=== PATIENT | female | born 1955 | race Caucasian/White ===

== ENCOUNTER 2017-03-12 14:19 | Observation (INO) ==
[2017-03-12] MEDS ORDERED: Aspirin 325 MG TABLET PO ONE (17:49)
[2017-03-12] MEDS ORDERED: Nitroglycerin 0.4 MG TAB.SUBL SL PRN (17:49)
[2017-03-12] MEDS ORDERED: Naloxone 0.4 MG/ML INJ IVP PRN (20:36)
--- NOTE | 2017-03-12 20:41 | Internal Med History&Physical ---
<Shakeel Mckenzie J - Last Filed: 03/12/17 21:51> Date of Encounter: 03/12/17 Time of Encounter: 20:39 Assessment and Plan (1) Pulmonary embolism Current visit: Yes Status: Suspected Rapid onset of dyspnea. He awoke at 0400 with shortness of breath. Has subsided at this time. However, d-dimer is elevated at 1146. Concern for PE. CTA of chest Limited exam revealing no PE. 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 Given the acute onset of dyspnea, Speck to cancer we will continue to rule out PE start heparin drip now without bolus and monitor per heparin gtt protocol Bilateral lower extremity venous Doppler studies in the morning VQ scan in the morning Serial troponin echocardiogram Qualifiers: Chronicity: acute Acute cor pulmonale presence: without acute cor pulmonale Qualified Code(s): I26.99 - Other pulmonary embolism without acute cor pulmonale (2) Elevated troponin Current visit: No Status: Acute Denies any chest pain, hemodynamically stable. Initial troponin 0.04. Repeat troponin 0.03 Serial troponins echocardiogram (3) Elevated d-dimer Current visit: Yes Status: Acute CTA negative for PE however study was limited. Denies any lower extremity pain or tenderness. BLE chronically swollen. However, she is at risk for VTE, which possible cancer from ovarian tumor. See plan above Internal Medicine - H&P: HPI Chief complaint: dyspnea Admitted From: Home Plans for Post Hospital Care: Home History of present illness: Ms. Dejesus is a 61 year old female with a PMH of CHF and hypertension. She reports that she woke this morning at 0400 with rapid onset of shortness of breath. She states that last night she began feeling palpitations," feeling heart was beating, chest, I think it was an anxiety attack". No history of COPD , or PE. The patient mentions that she has an having postmenopausal bleeding and was diagnosed with an ovarian tumor. Tumor is yet to be biopsied. Workup reveals elevated troponin at 0.04, gripping and thrombocytopenia. D-dimer elevated 1146. UA reveals large blood. Chest x-ray and CTA negative. Given her clinical presentation she is at risk for pulmonary embolus. We will admit and continue to workup Past Med Surg Social Fam HX - Past Medical History Medical history: CHF, hypertension, other Psychiatric history: no psych history - Social History Smoking Status: Never smoker Smokeless Tobacco Status: No Alcohol use: none Drug use: none - Family History Mother Race: Family Member Ethnicity: Non- Hx Family Cancer: Yes (thyroid cancer) Father Race: Family Member Ethnicity: Non- Living Status: Hx Family Cardiac Disorders: Yes (mi) Sister Living Status: Hx Family Cancer: Yes (breast) Internal Medicine - H&P: Meds Doxycycline 100 mg PO BID 01/11/16 [History] Furosemide [Lasix] 40 mg PO BID 01/11/16 [History] Olmesartan Medoxomil [Benicar] 40 mg PO DAILY 01/11/16 [History] traMADol [Ultram] 50 mg PO BID 01/11/16 [History] 3 Allergy/AdvReac Type Severity Reaction Status Date / Time azithromycin [From Zithromax] Allergy Itching Verified 03/12/17 07:36 cephalexin [From Keflex] Allergy Hives Verified 03/12/17 07:36 ciprofloxacin [From Cipro] Allergy See Verified 03/12/17 07:36 Comments Erythromycin Base Allergy See Verified 03/12/17 07:36 Comments indomethacin [From Indocin] Allergy Rash Verified 03/12/17 07:36 Penicillins [PCN] Allergy See Verified 03/12/17 07:36 Comments sulfur dioxide Allergy Rash Verified 03/12/17 07:36 All Systems PM: A 10-system review of systems was performed and is negative for pertinent findings except as documented above in the HPI. - Constitutional Constitutional: no chills, no fever(s), no night sweats - EENT Eyes: no change in vision, no discharge, no pain, no photophobia Ears: no ear discharge, no ear pain, no tinnitus Nose, mouth and throat: no dysphagia, no nasal discharge, no neck pain, no sore throat - Cardiovascular Cardiovascular ROS IM: no chest pain, no diaphoresis, no dyspnea, no lightheadedness, no palpitations, no syncope - Respiratory Respiratory: dyspnea (has now subsided), no cough, no wheezing, no excessive phlegm production - Gastrointestinal Gastrointestinal: no abdominal pain, no diarrhea, no hematemesis, no hematochezia, no melena, no nausea, no vomiting - Genitourinary Genitourinary: no change in urinary stream, no dysuria, no flank pain, no hematuria - Musculoskeletal Musculoskeletal ROS IM: no numbness, no tingling - Integumentary Integumentary IM: no rash, no unusual bruising - Neurological Neurological ROS: no confusion, no convulsions, no focal weakness, no numbness, no tingling, no tremor(s) - Psychiatric Psychiatric: anxiety (intermittent) - Hematologic/Lymphatic Hematologic/Lymphatic: no easy bruising - Constitutional Vitals: Temp Pulse Resp BP Pulse Ox 98.0 F 88 16 118/68 97 03/12/17 19:12 03/12/17 19:12 03/12/17 19:12 03/12/17 19:12 03/12/17 19:12 General appearance: Present: cooperative, A&O X 3, no acute distress, answers questions appropriately - Head Head exam: Present: atraumatic, normocephalic - Eye Eye exam: Present: PERRL, conjuntiva pink, sclera anicteric Pupils: Present: PERRL - Neck Neck exam general surgery: Present: supple, trachea midline. Absent: lymphadenopathy - Respiratory Respiratory exam: Present: CTAB. Absent: accessory muscle use, rales, rhonchi, wheezes - Cardiovascular Cardiovascular exam: Present: RRR, +S1, +S2. Absent: diastolic murmur, gallop, rubs, systolic murmur - Expanded Cardiovascular Exam Type of murmur: Present: systolic - GI/Abdominal GI/Abdominal exam: Present: normal bowel sounds, soft, no peritoneal signs. Absent: distended, tenderness - Extremities Exam Extremities exam: Present: warm, radial pulses palpable and symmetrical. Absent : calf tenderness, cyanotic, pedal edema - Neurological Exam Neurological exam: Present: alert, CN II-XII intact, oriented X3, no focal deficits. Absent: pronater drift, facial droop, speech deficit - Skin Skin exam: Present: dry, intact Internal Med - H&P Results - Labs Labs: Cardiac Enzymes 03/12/17 Range/Units 19:29 Troponin I 0.03 (0-0.03) ng/mL - Diagnostic Studies Chest x-ray Status: image reviewed by me Additional comments: no acute pulmonary process CT scan - chest Status: image reviewed by me Additional comments: Study is limited however no obvious PE noted. If shortness of breath continues consider VQ scan <Naumovski,Tobi - Last Filed: 03/12/17 23:22> Date of Encounter: 03/12/17 Time of Encounter: 22:45 - Cardiovascular Cardiovascular ROS IM: dyspnea, palpitations, no chest pain, no lightheadedness , no syncope - Respiratory Respiratory: dyspnea, no hemoptysis, no pain on inspiration, no chest congestion , no excessive phlegm production, no change in phlegm color - Constitutional Vitals: Temp Pulse Resp BP Pulse Ox 98.0 F 80 16 153/69 96 03/12/17 22:46 03/12/17 22:46 03/12/17 22:46 03/12/17 22:46 03/12/17 22:46 General appearance: Present: cooperative, A&O X 3, pleasant, no acute distress - Neck Neck exam general surgery: Present: full ROM, supple. Absent: tenderness - Respiratory Respiratory exam: Present: CTAB. Absent: rales, respiratory distress, rhonchi, wheezes - Cardiovascular Cardiovascular exam: Present: RRR, +S1, +S2. Absent: diastolic murmur, systolic murmur - GI/Abdominal GI/Abdominal exam: Present: soft. Absent: tenderness - Back Exam Back exam: Absent: CVA tenderness (L), CVA tenderness (R) Internal Med - H&P Results - Labs Labs: Cardiac Enzymes 03/12/17 Range/Units 19:29 Troponin I 0.03 (0-0.03) ng/mL - EKG Data -: EKG Interpreted by Myself - EKG Data Prior EKG available for review: no EKG comments: 03/12/17 23:13 Sinus tachycardia - Diagnostic Studies Chest x-ray Status: image reviewed by me (negative) - Attending Attestation I discussed the patient TYONEK, PMH, ROS, lab data, and exam findings with Shakeel Mkcenzie CNP. I then saw and examined patient independently as well. 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 She is in the process of diagnostic work-up at [facility]. She awoke from her sleep earlier today with shortness of breath and racing heartbeat. Given the suspected malignancy and sudden onset of dyspnea, my clinical suspicion of PE is very high. Her D-Dimer is markedly elevated. She had a CTA of her chest at [place], but the study was suboptimal and non-diagnostic. It did rule out PE in the proximal vaculature but distal PE could not be excluded. We have placed her on heparin gtt with no bolus. She does have chronic thrombocytpenia with platelets running around 90-100's. We will monitor closely for any significant bleeding. She does have a mild nosebleed, which is chronic for her. I advised her and her nurse to monitor for any significant bleeding and to contact me right away if it occurs. She denies any history of GI bleeding. Of note, she does confirm a family history of DVT in her mother. Other than my comments above and noted exam findings, I agree with Shakeel's assessment and plan.
[2017-03-12] MEDS: traMADol 50 MG TABLET PO SCH (21:54)
[2017-03-12] MEDS: Furosemide 40 MG TABLET PO SCH (21:55)
[2017-03-12] MEDS: Heparin 25,000 UNIT/500 ML D5W 25,000 UNIT/500 ML MLS IVC SCH (22:17)
[2017-03-13] MEDS ORDERED: Temazepam 15 MG CAPSULE PO ONE (00:39)
[2017-03-13 01:15] LABS: Basophils % 0.9 %; Eosinophils # 0.2 K/mcL (0.0-0.6); Eosinophils % 4.9 %; Hematocrit 35.6 % (35.3-44.9); Hemoglobin 12.1 g/dL (11.5-15.4); Immature Granulocytes % 0.2 % (0-4); Lymphocytes # 1.1 K/mcL (0.6-4.6); Lymphocytes % 25.2 %; Mean Corpuscular Hemoglobin 33.3 pg (28.0-33.3); Mean Corpuscular Volume 98.1 fL (83.0-100.0); Mean Platelet Volume 10.2 fL (9.4-12.4); Monocytes # 0.4 K/mcL (0.0-1.3); Monocytes % 9.9 %; Neutrophils # 2.5 K/mcL (1.6-8.9); Red Blood Count 3.63 M/mcL (3.82-4.97); Red Cell Distribution Width 13.4 % (11.5-14.5); Segmented Neutrophils % 58.9 %
[2017-03-13 01:16] LABS: Platelet Count 88 K/mcL (140-400)
[2017-03-13 01:31] LABS: Alanine Aminotransferase 17 Units/L (0-55); Albumin 2.6 g/dL (3.5-5.0); Albumin/Globulin Ratio 0.8 (1.1-2.2); Alkaline Phosphatase 87 Units/L (38-126); Aspartate Amino Transferase 35 Units/L (5-34); BUN/Creatinine Ratio 17 (6-26); Bilirubin,Total 1.2 mg/dL (0.2-1.2); Blood Urea Nitrogen 11 mg/dL (7-20); Calcium 8.8 mg/dL (8.6-10.8); Carbon Dioxide 25 mEq/L (19-29); Chloride 111 mEq/L (98-109); Globulin 3.2 g/dL (2.4-3.5); Glucose 116 mg/dL (70-99); Magnesium 1.6 mg/dL (1.6-2.6); Osmolality,Calculated 294 (280-300); Potassium 3.9 mEq/L (3.5-4.5); Sodium 142 mEq/L (136-145); Total Protein 5.8 g/dL (6.0-8.3); eGFR For African Americans > 60 (> 60); eGFR For Non-African Americans > 60 (> 60)
[2017-03-13 05:06] LABS: Heparin anti-factor XA UFH 0.51 IU/mL (0.30-0.70)
[2017-03-13 05:28] LABS: Activated Partial Thrombo Time 215.1 Seconds (26.0-36.0)
[2017-03-13] MEDS ORDERED: Acetaminophen 325 MG TABLET PO PRN (05:35)
[2017-03-13] MEDS ORDERED: *HR* Enoxaparin 40 MG/0.4 ML SYRINGE SQ SCH (06:00)
[2017-03-13] MEDS: traMADol 50 MG TABLET PO SCH (08:54)
[2017-03-13] MEDS: Furosemide 40 MG TABLET PO SCH (08:54)
[2017-03-13] MEDS: Heparin 25,000 UNIT/500 ML D5W 25,000 UNIT/500 ML MLS IVC SCH (08:56)
[2017-03-13 15:41] VITALS: BP 150/70
--- NOTE | 2017-03-13 16:14 | Discharge Summary ---
Date of Encounter: 03/13/17 Time of Encounter: 16:00 - Discharge Diagnosis (1) Elevated d-dimer Priority: Secondary Status: Acute Code(s): R79.89 - Other specified abnormal findings of blood chemistry (2) Venous insufficiency Priority: Secondary Status: Acute Code(s): I87.2 - Venous insufficiency (chronic) (peripheral) (3) Dyspnea Priority: Primary Status: Acute Qualifiers: Dyspnea type: unspecified Qualified Code(s): R06.00 - Dyspnea, unspecified Code(s): R06.00 - Dyspnea, unspecified (4) Reactive airway disease Priority: Secondary Status: Acute Comments: Continue albuterol as needed Qualifiers: Asthma severity: mild Asthma persistence: unspecified Qualified Code(s): J45.909 - Unspecified asthma, uncomplicated Code(s): J45.909 - Unspecified asthma, uncomplicated - Discharge Medications Prescriptions: Ergocalciferol (VITAMIN D2) [Drisdol (50,000 Unit)] 50,000 unit PO QWEEK #15 capsule Thiamine (B-1) [Vitamin B-1] 200 mg PO DAILY #180 tablet Home Medications: Olmesartan Medoxomil [Benicar] 40 mg PO DAILY 01/11/16 [History] traMADol [Ultram] 50 mg PO BID 01/11/16 [History] Ergocalciferol (VITAMIN D2) [Drisdol (50,000 Unit)] 50,000 unit PO QWEEK #15 capsule 03/13/17 [Rx] Furosemide [Lasix] 40 mg PO BIDDIURETIC tablet 03/13/17 [Rx] Nitroglycerin 0.4 mg SL Q5MIN PRN #25 tab.subl 03/13/17 [Rx] Thiamine (B-1) [Vitamin B-1] 200 mg PO DAILY #180 tablet 03/13/17 [Rx] Zolpidem [Ambien] 5 mg PO HS 03/13/17 [History] Allergies/Adverse Reactions: 3 Allergy/AdvReac Type Severity Reaction Status Date / Time azithromycin [From Zithromax] Allergy Itching Verified 03/12/17 07:36 cephalexin [From Keflex] Allergy Hives Verified 03/12/17 07:36 ciprofloxacin [From Cipro] Allergy See Verified 03/12/17 07:36 Comments Erythromycin Base Allergy See Verified 03/12/17 07:36 Comments indomethacin [From Indocin] Allergy Rash Verified 03/12/17 07:36 Penicillins [PCN] Allergy See Verified 03/12/17 07:36 Comments sulfur dioxide Allergy Rash Verified 03/12/17 07:36 Procedures/tests Complete & Pending: Procedures Performed prior 72 hours Category Date Time Status VQ Scan [NM pul vent and perfuse] [NM] Routine Exams 03/13/17 09:00 Completed EV echocardiogram Routine Y 03/13/17 20:46 Completed EV venous imaging LE BI Routine Y 03/13/17 21:24 Completed Date of admission: 03/12/17 15:38 Primary care physician: Darrell Lafleur CNP Discharging clinician: Clara Medrano Anticipated date of discharge: 03/13/17 - Patient Status Disposition: Home, Self-Care Condition: Good Functional capacity at discharge: independent ambulation Overall status at discharge: patient is back to baseline - Discharge Instructions Instructions: Dyspnea (GEN) Follow Up With: Darrell Lafleur CNP [Primary Care Provider] - 03/19/17 11:00 am (Pulmonary function test and stress test to be done as an outpatient) - Diet and Activity Activity: resume usual activities as tolerated Diet: low fat, low cholesterol Interval History: Ms. Dejesus is a 61 year old female with a PMH of hypertension. Patient came to the hospital with complain waking up in the morning with shortness of breath and palpitation. Patient stated to have palpitations started night before. Patient stated that during Fall months usually she has a tach of shortness of breath. Patient stated she is living in cannot decide where farmers now gathering [place] .patient denies any orthopnea or proximal nocturnal dyspnea. Patient has history of bilateral lower extremity edema. Patient has a history of fatty liver .at ER her troponin was 0.004, she had elevated d-dimer. With high-risk all be workup was done was including venous Doppler lower extremities as well as CT scan. Venous doppler lower extremity was negative, CAT scan chest was inconclusive, VQ scan low probability. At beginning patient was started on heparin drip once workup negative heparin drip discontinued. I had long discussion with patient counseling about her risk factors and the need for a stress test. Patient wanted to add as an outpatient. Discussed with patient about finding on CAT scan about liver cirrhosis. She had follow-up with supervisor doping. Discussed with patient about this attack most likely asthma and she need to have pulmonary function test and follow-up with pulmonary. Patient stated she is going to follow-up with family doctor and arrange for a stress test and pulmonary function test. Patient stated she is back to her baseline. Counseling patient about lifestyle modification Hospital course: Ms. Dejesus is a 61 year old female - Time Spent with Patient Total time spent providing and/or coordinating discharge services: Greater than 30 minutes - Constitutional Vitals: Temp Pulse Resp BP Pulse Ox 97.6 F 64 16 150/70 98 03/13/17 15:39 03/13/17 15:39 03/13/17 15:39 03/13/17 15:39 03/13/17 15:39 General appearance: Present: cooperative, A&O X 3, pleasant, no acute distress - Head Head exam: Present: atraumatic, normocephalic - Neck Neck exam general surgery: Present: supple, trachea midline. Absent: lymphadenopathy - Respiratory Respiratory exam: Present: CTAB. Absent: accessory muscle use, rales, rhonchi, wheezes - Cardiovascular Cardiovascular exam: Present: RRR, +S1, +S2. Absent: diastolic murmur, gallop, rubs, systolic murmur
== END 2017-03-13 17:40 | disposition home or self-care (01) ==
LOC: 3BNU
PROVIDERS: ADMIT Family Medicine; ATTEND Registered Nurse

== ENCOUNTER 2017-12-28 10:41 | Inpatient (IN) ==
[2017-12-28] MEDS ORDERED: Naloxone 0.4 MG/ML INJ IVP PRN (13:21)
--- NOTE | 2017-12-28 13:48 | Internal Med History&Physical ---
Date of Encounter: 12/28/17 Time of Encounter: 12:35 Internal Medicine - H&P: HPI Chief complaint: Whole body ache Admitted From: Home Plans for Post Hospital Care: Home History of present illness: Ms. Dejesus is a 62 year old female present to [facility] emergency room for whole body ache. Past medical history is significant for cellulitis, morbid obesity, multiple antibiotic allergies, hypertension. Patient has mild nausea since last night. Today from morning she feels whole body ache, muscle pain. Patient denies fever. But complaining of chills in the morning. Patient denies shortness of breath, chest pain, abdominal pain, or vomiting. Patient denies recent travel or immobilization. Patient has chronic bilateral lymphedema. Patient has left-sided lower leg cellulitis was treated with doxycycline as outpatient. Patient has finished by mouth doxycycline 3 days ago. She still has left the lower leg skin redness, warmth, and tenderness. In [facility] emergency room, patient was found tachycardia with a heart rate 126, elevated d-dimer to 18,000, lactate acid 2.5. Patient was treated with vancomycin IV for cellulitis and IV fluid. After treatment, patient's symptoms has improved. Urine analysis shows UTI, patient denies dysuria, urgency, or increased frequency. Patient was transferred to our hospital because of concerning of high d-dimer, need to further test to rule out PE and DVT. Past Med Surg Social Fam HX - Past Medical History Medical history: CHF, hypertension, other (Elevated BMI) Additional medical history: cellulitis; mrsa Psychiatric history: no psych history - Past Surgical History Surgical History: orthopedic, other, other (Tonsillectomy) - Social History Smoking Status: Never smoker Smokeless Tobacco Status: No Alcohol use: none Drug use: none - Family History Mother Family Member Ethnicity: Non- Hx Family Cancer: Yes (thyroid cancer) Father Family Member Ethnicity: Non- Living Status: Hx Family Cardiac Disorders: Yes (mi) Sister Living Status: Hx Family Cancer: Yes (breast) Internal Medicine - H&P: Meds Olmesartan Medoxomil [Benicar] 40 mg PO DAILY 01/11/16 [History] traMADol [Ultram] 50 mg PO BID 01/11/16 [History] Ergocalciferol (VITAMIN D2) [Drisdol (50,000 Unit)] 50,000 unit PO QWEEK #15 capsule 03/13/17 [Rx] Furosemide [Lasix] 40 mg PO BIDDIURETIC tablet 03/13/17 [Rx] Nitroglycerin 0.4 mg SL Q5MIN PRN #25 tab.subl 03/13/17 [Rx] Thiamine (B-1) [Vitamin B-1] 200 mg PO DAILY #180 tablet 03/13/17 [Rx] Zolpidem [Ambien] 5 mg PO HS 03/13/17 [History] Milk Thistle [Milk Thistle] 1,000 mg PO DAILY 07/19/17 [History] 3 Allergy/AdvReac Type Severity Reaction Status Date / Time azithromycin [From Zithromax] Allergy Itching Verified 12/28/17 08:31 cephalexin [From Keflex] Allergy Hives Verified 12/28/17 08:31 ciprofloxacin [From Cipro] Allergy See Verified 12/28/17 08:31 Comments Erythromycin Base Allergy See Verified 12/28/17 08:31 Comments indomethacin [From Indocin] Allergy Rash Verified 12/28/17 08:31 Penicillins [PCN] Allergy See Verified 12/28/17 08:31 Comments sulfur dioxide Allergy Rash Verified 12/28/17 08:31 All Systems PM: A 10-system review of systems was performed and is negative for pertinent findings except as documented above in the HPI. - Constitutional General appearance: Present: A&O X 3, morbidly obese, pleasant, no acute distress, answers questions appropriately - Head Head exam: Present: atraumatic, normocephalic - Eye Eye exam: Present: PERRL, conjuntiva pink, sclera anicteric Pupils: Present: PERRL - Neck Neck exam general surgery: Present: supple, trachea midline. Absent: lymphadenopathy - Respiratory Respiratory exam: Present: CTAB. Absent: accessory muscle use, rales, rhonchi, wheezes - Cardiovascular Cardiovascular exam: Present: RRR, +S1, +S2. Absent: diastolic murmur, gallop, rubs, systolic murmur - GI/Abdominal GI/Abdominal exam: Present: normal bowel sounds, soft, no peritoneal signs. Absent: distended, tenderness - Extremities Exam Extremities exam: Present: pedal edema (Lymphedema bilaterally), warm, radial pulses palpable and symmetrical. Absent: calf tenderness, cyanotic Additional comments: Left lower leg skin redness/warmth/mild tenderness. No open wound, no discharge - Neurological Exam Neurological exam: Present: CN II-XII intact, oriented X3, no focal deficits. Absent: pronater drift, facial droop, speech deficit - Skin Skin exam: Present: dry, intact - Assessment and plan (1) DVT prophylaxis Current Visit: Yes Status: Acute Assessment and plan: Patient was given 1 dose of Lovenox today by [facility] at 140mg. patient has chronic mild thrombocytopenia. However, she is at high risk of DVT because of morbid obesity, will place prophylaxis Lovenox from tomorrow morning if DVT and PE test negative. (2) Cellulitis of left lower leg Current Visit: No Status: Acute Assessment and plan: Continue IV vancomycin. Blood culture was drawn by [facility]. (3) Elevated d-dimer Current Visit: No Status: Acute Assessment and plan: Patient has significantly high d-dimer, with tachycardia. Patient has bilateral lymphedema, difficult to rule out DVT by physical exam. Will order CTA and bilateral venous Doppler to rule out PE and DVT (4) Thrombocytopenia Current Visit: No Status: Acute Assessment and plan: Chronic. Continue closely monitoring. - Time Spent With Patient Total time spent is greater than 50% in coordination of care (as documented) at patient's floor/unit and/or counseling patient: 30 minutes 25 - 35 minutes
[2017-12-28] MEDS: 0.9 % Sodium Chloride 1,000 ML IVC SCH (15:19)
[2017-12-28] MEDS ORDERED: Stomatitis Mixture 5 ML UDC PO PRN (16:22)
--- NOTE | 2017-12-28 16:38 | Event Note ---
Date of Encounter: 12/28/17 Time of Encounter: 15:00 Vascular preliminay report shows SVT on left leg. Called Vascular surgery consult Dr Lamar, was recommended no need for anticoagulation except prophylaxis lovenox.
[2017-12-28] MEDS: Isovue-370 500 ML INFUS..BTL IV ONE (17:49)
[2017-12-28] MEDS: DICLOFENAC GEL TP SCH ×2 (18:51→20:11)
[2017-12-28] MEDS: Furosemide 40 MG TABLET PO SCH (18:52)
[2017-12-28] MEDS ORDERED: 0.9 % Sodium Chloride 1,000 ML IVC ONE (20:08)
[2017-12-28] MEDS: Acetaminophen 325 MG TABLET PO PRN (20:10)
[2017-12-28] MEDS ORDERED: miSOPROStol 100 MCG TABLET PO SCH (21:00)
[2017-12-28] MEDS: traMADol 50 MG TABLET PO PRN (23:54)
[2017-12-29] MEDS: *HR* Enoxaparin 40 MG/0.4 ML SYRINGE SQ SCH (05:46)
[2017-12-29 07:23] LABS: Basophils # 0.1 K/mcL (0.0-0.2); Basophils % 0.4 %; Eosinophils # 0.1 K/mcL (0.0-0.6); Eosinophils % 1.2 %; Hematocrit 34.2 % (35.3-44.9); Hemoglobin 11.4 g/dL (11.5-15.4); Immature Granulocytes % 1.3 % (0-4); Immature Platelets 2.5 % (1.1-6.1); Lymphocytes % 8.7 %; Mean Corpuscular HGB Conc 33.3 g/dL (31.6-35.5); Mean Corpuscular Hemoglobin 34.5 pg (28.0-33.3); Mean Corpuscular Volume 103.6 fL (83.0-100.0); Mean Platelet Volume 10.3 fL (9.4-12.4); Monocytes # 0.7 K/mcL (0.0-1.3); Monocytes % 6.4 %; Neutrophils # 9.5 K/mcL (1.6-8.9); Red Cell Distribution Width 13.8 % (11.5-14.5)
[2017-12-29 07:24] LABS: Platelet Count 86 K/mcL (140-400)
[2017-12-29 07:35] LABS: BUN/Creatinine Ratio 33 (6-26); Blood Urea Nitrogen 23 mg/dL (8-23); Calcium 7.7 mg/dL (8.6-10.3); Carbon Dioxide 25 mEq/L (23-29); Chloride 111 mEq/L (98-107); Glucose 113 mg/dL (70-105); Osmolality,Calculated 290 (280-300); Potassium 3.9 mEq/L (3.5-5.1); Sodium 138 mEq/L (136-145); eGFR For Non-African Americans > 60 (> 60)
[2017-12-29] MEDS ORDERED: MILK THISTLE PO SCH (09:00)
[2017-12-29] MEDS ORDERED: LYSINE 500 MG PO SCH (09:00)
[2017-12-29] MEDS: DICLOFENAC GEL TP SCH ×3 (09:26→17:41)
[2017-12-29] MEDS: 0.9 % Sodium Chloride 1,000 ML IVC SCH (09:36)
[2017-12-29] MEDS: predniSONE 20 MG TABLET PO SCH (09:50)
[2017-12-29] MEDS: Furosemide 40 MG TABLET PO SCH ×2 (09:50→17:41)
--- NOTE | 2017-12-29 09:54 | Internal Med Progress Note ---
<Yusef Mchugh P - Last Filed: 12/29/17 16:55> Hospitalist Progress Note - Encounter Date of Encounter: 12/29/17 Time of Encounter: 09:00 - Subjective Interval History: Today is 2nd DOA.she is a 62 year old female referred from [place] emergency room for whole body ache, fatigue, left leg pain, swelling and redness. Past medical history is significant for recurrent cellulitis, morbid obesity, multiple antibiotic allergies, Lymphoedea both legs , hypertension.Since yesterday morning she started feeling weak , nauseated, whole body ache, muscle pain, fatiguability. Patient denies fever, but complaining of chills and feeling cold in the morning.She doesn't have any h/o shortness of breath, chest pain, abdominal pain, or vomiting, palpitation, fall, limb weakness. Patient denies recent travel or immobilization. Patient has chronic bilateral lymphedema and develops on and off cellulitis . This time Patient has left-sided lower leg cellulitis was treated with doxycycline for 10 days as outpatient and she finished antibiotics . Patient has finished oral doxycycline 3 days ago, but still she has left the lower leg swelling, redness , feeling hot and tender . In [facility] ED, patient was found tachycardia/ , elevated d-dimer to 18,000, lactate acid 2.5. Patient was treated with vancomycin IV for cellulitis and IV fluid. After treatment, patient's symptoms got improved. The patient denies dysuria, urgency, or increased frequency. Patient was transferred to [facility] with concern for high d-dimer, leg swelling and pain to rule out PE and DVT. Today patient is happy , she states that it has been 80% improvement since admission ,no fever , no palpitation, cough and chest pain, but left leg swelling and pain is significantly less . Vitals: 98.6 F, pul 75, BP 113/48, 95 % sat .USG leg : no evidence of DVT, only superficial vein obstruction., TLC 11.6 , Na135, K 3.9 ,glucose 138, Lactate 2.9- 0.8(today) BUN 23, creatinine 0.69, GFR>60 - Exam Vitals: Temp Pulse Resp BP Pulse Ox 98.6 F 75 16 113/48 95 12/29/17 06:52 12/29/17 06:52 12/29/17 06:52 12/29/17 06:52 12/29/17 04:00 Exam: Alert , oriented to TPP , not febrile, not in acute distress Chest : clear both side , no murmur rub or rales Normal rate rhythm, no Murmur Abdomen: soft warm no tender, no organomegaly Extremities: Left : lymphoedema, venous statis dermatitis Circumferential swelling, tenderness in proximal calf, redness, increased local temperature . Peripheral pulsation+ Right: Lymphoedema, Venous stasis dermatitis , Peripheral pulsation + - Assessment and Plan (1) Elevated d-dimer Current Visit: No Status: Acute Assessment and Plan: Patient has significantly high d-dimer, with tachycardia. D dimer in [facility] : High Venous droppler : no evidence of DVT only superficial obstruction she is on IV antibiotics for leg swelling She is on DVT prophylaxis Lovenox 40 mg S/C (2) Cellulitis of left lower leg Current Visit: No Status: Inactive Assessment and Plan: Swelling and [ain is less than before She is on IV vancomycin 2 gram IV BID x day 2nd We are closely monitoring , symptoms are much better today. TLC 11.6 (3) DVT prophylaxis Current Visit: Yes Status: Acute Assessment and Plan: She is on DVT prophylaxis Lovenox 40 mg SC No evidence of DVT, only superficial vein obstruction . (4) Thrombocytopenia Current Visit: No Status: Acute Assessment and Plan: Chronic. Continue closely monitoring. Latest report 86 (5) Venous stasis dermatitis Current Visit: Yes Status: Acute Assessment and Plan: She has Lymphoedema and venous edema both side Massive erythematous lesion in both leg There is pain and swelling in left leg especially proximal leg, no ulcer developed. We are monitoring - Time Spent with Patient Total time spent is greater than 50% in coordination of care (as documented) at patient's floor/unit and/or counseling patient: Internal Medicine: Result - Labs CBC & Chem 7: 12/29/17 07:05 12/29/17 07:05 Labs: Short CBC 12/29/17 Range/Units 07:05 WBC 11.6 H (4.3-11.1) K/mcL Hgb 11.4 L D (11.5-15.4) g/dL Hct 34.2 L (35.3-44.9) % Plt Count 86 L (140-400) K/mcL Neutrophils # 9.5 H (1.6-8.9) K/mcL BMP 12/29/17 07:05 Sodium 138 Potassium 3.9 Chloride 111 H Carbon Dioxide 25 BUN 23 Creatinine 0.69 Glucose 113 H Calcium 7.7 L - Impressions Impressions Chest CTA 12/28/17 13:21 IMPRESSION: No evidence of pulmonary embolism or acute pulmonary abnormality. Limited images of the abdomen suggesting hepatic cirrhosis with findings of portal venous hypertension including splenomegaly and upper abdominal varices. D/ / 12/28/2017 18:15:45 Antonio Middleton MD / kisha Interpreting Provider: Antonio Middleton MD Consult Discharge Plan - Plan Referrals: Liza Chambers, LABVIEW PROGRAMMER [Primary Care Provider] - <Jose Mcgowan - Last Filed: 12/29/17 18:05> Hospitalist Progress Note - Encounter Date of Encounter: 12/29/17 - Exam Vitals: Temp Pulse Resp BP Pulse Ox 98.4 F 90 18 139/62 96 12/29/17 16:05 12/29/17 16:05 12/29/17 16:05 12/29/17 16:05 12/29/17 16:05 - Assessment and Plan (1) Cellulitis of left lower leg Current Visit: No Status: Inactive (2) Lymphedema Current Visit: Yes Status: Chronic (3) Elevated d-dimer Current Visit: No Status: Acute (4) Thrombocytopenia Current Visit: No Status: Acute (5) DVT prophylaxis Current Visit: Yes Status: Acute (6) Venous stasis dermatitis Current Visit: Yes Status: Acute (7) Nonalcoholic hepatosteatosis Current Visit: No Status: Chronic (8) Hypersplenism Current Visit: No Status: Chronic - Time Spent with Patient Total time spent is greater than 50% in coordination of care (as documented) at patient's floor/unit and/or counseling patient: Internal Medicine: Result - Labs CBC & Chem 7: 12/29/17 07:05 12/29/17 07:05 Labs: Short CBC 12/29/17 Range/Units 07:05 WBC 11.6 H (4.3-11.1) K/mcL Hgb 11.4 L D (11.5-15.4) g/dL Hct 34.2 L (35.3-44.9) % Plt Count 86 L (140-400) K/mcL Neutrophils # 9.5 H (1.6-8.9) K/mcL BMP 12/29/17 07:05 Sodium 138 Potassium 3.9 Chloride 111 H Carbon Dioxide 25 BUN 23 Creatinine 0.69 Glucose 113 H Calcium 7.7 L - Impressions Impressions Chest CTA 12/28/17 13:21 IMPRESSION: No evidence of pulmonary embolism or acute pulmonary abnormality. Limited images of the abdomen suggesting hepatic cirrhosis with findings of portal venous hypertension including splenomegaly and upper abdominal varices. D/ / 12/28/2017 18:15:45 Antonio Middleton MD / kisha Interpreting Provider: Antonio Middleton MD - Attending Attestation I examined this patient and my medical decision-making was reviewed with the Resident Physician on 12/29/17. I agree with the documented findings, disposition and treatment plan as described except to the extent set forth below. Ms Dejesus is currently in observation for cellulitis and elevated d dimer. She remains moderate to high risk. Ms Dejesus is doing OK. She feels her leg is less red and painful. CTA and venous studies negative. No CP or SOB. No GI issues. Exam alert Comfortable Mucus membranes dry Heart distant and not tachy No wheeze Abd soft Lymphedema present I/P 1. Cellulitis 2. Lymphedema Further diagnoses and plan as above. <Jose Mcgowan A - Last Filed: 12/29/17 18:05> (6) Venous stasis dermatitis Qualifiers: Laterality: bilateral Qualified Code(s): I87.2 - Venous insufficiency ( chronic) (peripheral)
[2017-12-29] MEDS: traMADol 50 MG TABLET PO PRN (13:25)
[2017-12-29] MEDS: Acetaminophen 325 MG TABLET PO PRN (22:28)
[2017-12-30] MEDS: DICLOFENAC GEL TP SCH ×4 (00:21→17:38)
[2017-12-30 05:00] LABS: Hematocrit 38.7 % (35.3-44.9); Hemoglobin 12.9 g/dL (11.5-15.4); Mean Corpuscular HGB Conc 33.3 g/dL (31.6-35.5); Mean Corpuscular Hemoglobin 34.8 pg (28.0-33.3); Mean Corpuscular Volume 104.3 fL (83.0-100.0); Platelet Count 100 K/mcL (140-400); Red Blood Count 3.71 M/mcL (3.82-4.97); Red Cell Distribution Width 13.6 % (11.5-14.5)
[2017-12-30 05:20] LABS: BUN/Creatinine Ratio 34 (6-26); Blood Urea Nitrogen 20 mg/dL (8-23); Calcium 8.5 mg/dL (8.6-10.3); Carbon Dioxide 25 mEq/L (23-29); Chloride 111 mEq/L (98-107); Glucose 109 mg/dL (70-105); Magnesium 1.9 mg/dL (1.6-2.6); Osmolality,Calculated 293 (280-300); Potassium 3.8 mEq/L (3.5-5.1); Sodium 140 mEq/L (136-145); eGFR For Non-African Americans > 60 (> 60)
[2017-12-30] MEDS: *HR* Enoxaparin 40 MG/0.4 ML SYRINGE SQ SCH (05:26)
[2017-12-30] MEDS: Furosemide 40 MG TABLET PO SCH ×2 (09:57→17:38)
[2017-12-30] MEDS: predniSONE 20 MG TABLET PO SCH (09:57)
--- NOTE | 2017-12-30 10:25 | Internal Med Progress Note ---
<Yusef Mchugh P - Last Filed: 12/30/17 16:17> Hospitalist Progress Note - Encounter Date of Encounter: 12/30/17 Time of Encounter: 10:00 - Subjective Interval History: Today is 3 DOA.she is a 62 year old female referred from [place] emergency room for whole body ache, fatigue, left leg pain, swelling and redness. Past medical history is significant for recurrent cellulitis, morbid obesity, multiple antibiotic allergies, Lymphoedea both legs , hypertension.Since yesterday morning she started feeling weak , nauseated, whole body ache, muscle pain, fatigability. Patient denies fever, but complaining of chills and feeling cold in the morning.She doesn't have any h/o shortness of breath, chest pain, abdominal pain, or vomiting, palpitation, fall, limb weakness. Patient denies recent travel or immobilization. Patient has chronic bilateral lymphedema and develops on and off cellulitis . This time Patient has left-sided lower leg cellulitis was treated with doxycycline for 10 days as outpatient and she finished antibiotics . Patient has finished oral doxycycline 3 days ago, but still she has left the lower leg swelling, redness , feeling hot and tender . In [place] ED, patient was found tachycardia/ , elevated d-dimer to 18,000, lactate acid 2.5. Patient was treated with vancomycin IV for cellulitis and IV fluid. After treatment, patient's symptoms got improved. The patient denies dysuria, urgency, or increased frequency. Patient was transferred to [facility] with concern for high d-dimer, leg swelling and pain to rule out PE and DVT. CT abdomen shows cirrhosis of liver with abdominal varices and portal hypertension with splenomegaly. Today patient is happy , she states that it has been 90% improvement since admission ,no fever , no palpitation, no cough and chest pain, but left leg swelling and pain has been gradually better and feeling fatigue is much better today . She mentioned that she hit her left leg while she was trying to get out of her bed yesterday night , so she has a little bit more pain at left proximal calf, but hotness ,swelling is much less, erythematous rashes is still there . Vitals: 98.3 F, pul 77, BP 173/78, 95% sat .USG leg : no evidence of DVT , only superficial vein obstruction. in left leg , TLC 10.5 , Na140, K 3.8 , glucose 109, Lactate 2.9- 0.8(today) BUN 20, creatinine 0.59, GFR>60 - Exam Vitals: Temp Pulse Resp BP Pulse Ox 98.3 F 77 18 173/78 96 12/30/17 06:55 12/30/17 06:55 12/30/17 06:55 12/30/17 06:55 12/30/17 06:55 Exam: Alert , oriented to TPP , not febrile, not in acute distress Chest : clear both side , no murmur rub or rales Normal rate rhythm, no Murmur Abdomen: soft warm no tender, no hepatomegaly , spleen slightly palpable Extremities: Left : lymphoedema, venous statis dermatitis Circumferential swelling, tenderness in proximal calf, redness, increased local temperature . Peripheral pulsation+ Right: Lymphoedema, Venous stasis dermatitis , Peripheral pulsation + - Assessment and Plan (1) Elevated d-dimer Status: Chronic Assessment and Plan: Patient has significantly high d-dimer, with tachycardia. D dimer in [facility] : High Venous droppler : no evidence of DVT only superficial obstruction she is on IV antibiotics for leg swelling She is on DVT prophylaxis Lovenox 40 mg S/C (2) Venous stasis dermatitis Status: Chronic Assessment and Plan: She has Lymphoedema and venous edema both side Massive erythematous maculopapular lesion in left leg There is pain and swelling in left leg especially proximal calf medially , no ulcer , abrasion , bruise developed. We are monitoring daily (3) Nonalcoholic hepatosteatosis Status: Chronic Assessment and Plan: Recent CT Abdomen and pelvis finding Finding of abdomen shows hepatic cirrhosis and portal Hypertension She isn't symptomatic (4) Thrombocytopenia Status: Acute (5) Hypersplenism Status: Chronic Assessment and Plan: She has splenomegaly detected during CT chest Evidence of Portal HTN and abdominal varices She has no complaints of GI bleeding, Hemetemesis, (6) DVT prophylaxis Status: Chronic (7) Lymphedema Status: Chronic - Time Spent with Patient Total time spent is greater than 50% in coordination of care (as documented) at patient's floor/unit and/or counseling patient: Internal Medicine: Result - Labs CBC & Chem 7: 12/30/17 04:08 12/30/17 04:08 Labs: Short CBC 12/30/17 Range/Units 04:08 WBC 10.5 (4.3-11.1) K/mcL Hgb 12.9 D (11.5-15.4) g/dL Hct 38.7 (35.3-44.9) % Plt Count 100 L (140-400) K/mcL [facility] 12/30/17 04:08 Sodium 140 Potassium 3.8 Chloride 111 H Carbon Dioxide 25 BUN 20 Creatinine 0.59 L Glucose 109 H Calcium 8.5 L Consult Discharge Plan - Plan Instructions: Linezolid (By mouth), Stasis Dermatitis (DC) Referrals: Liza Chambers OIL PIPELINE OPERATOR [Primary Care Provider] - 01/03/18 1:00 pm Prescriptions: Linezolid [Zyvox] 600 mg PO BID #14 tablet <Jose Mcgowan - Last Filed: 12/30/17 18:04> Hospitalist Progress Note - Encounter Date of Encounter: 12/30/17 - Exam Vitals: Temp Pulse Resp BP Pulse Ox 98.3 F 79 15 133/64 98 12/30/17 16:00 12/30/17 16:00 12/30/17 16:00 12/30/17 16:00 12/30/17 16:00 - Assessment and Plan (1) Cellulitis of left lower leg Status: Resolved (2) Lymphedema Status: Chronic (3) Elevated d-dimer Status: Chronic (4) Thrombocytopenia Status: Acute (5) DVT prophylaxis Status: Chronic (6) Venous stasis dermatitis Status: Chronic (7) Nonalcoholic hepatosteatosis Status: Chronic (8) Hypersplenism Status: Chronic (9) Chronic diastolic heart failure Status: Chronic - Time Spent with Patient Total time spent is greater than 50% in coordination of care (as documented) at patient's floor/unit and/or counseling patient: Internal Medicine: Result - Labs CBC & Chem 7: 12/30/17 04:08 12/30/17 04:08 Labs: Short CBC 12/30/17 Range/Units 04:08 WBC 10.5 (4.3-11.1) K/mcL Hgb 12.9 D (11.5-15.4) g/dL Hct 38.7 (35.3-44.9) % Plt Count 100 L (140-400) K/mcL [facility] 08/20/18 04:08 Sodium 140 Potassium 3.8 Chloride 111 H Carbon Dioxide 25 BUN 20 Creatinine 0.59 L Glucose 109 H Calcium 8.5 L - Impressions Impressions Chest CTA 12/28/17 13:21 IMPRESSION: No evidence of pulmonary embolism or acute pulmonary abnormality. Limited images of the abdomen suggesting hepatic cirrhosis with findings of portal venous hypertension including splenomegaly and upper abdominal varices. D/ / 12/28/2017 18:15:45 Antonio Middleton MD / kisha Interpreting Provider: Antonio Middleton MD - Attending Attestation Please see discharge summary of this date. <Yusef Mchugh P - Last Filed: 12/30/17 16:17> (2) Venous stasis dermatitis Qualifiers: Laterality: bilateral Qualified Code(s): I87.2 - Venous insufficiency ( chronic) (peripheral) <Jose Mcgowan A - Last Filed: 12/30/17 18:04> (6) Venous stasis dermatitis Qualifiers: Laterality: bilateral Qualified Code(s): I87.2 - Venous insufficiency ( chronic) (peripheral)
--- NOTE | 2017-12-30 15:27 | Discharge Summary ---
<Yusef Mchugh P - Last Filed: 12/30/17 16:16> - NOTES TO OUTPATIENT PROVIDER Notes to Outpatient Provider: Follow up with her PCP in out-patient unit Orders not resulted at time of discharge: Pending orders 12/30/17 20:11 Lactic Acid Q3HR Date of Encounter: 12/30/17 Time of Encounter: 10:00 - Discharge Diagnosis (1) Elevated d-dimer Priority: Secondary Status: Chronic Comments: Patient has significantly high d-dimer, with tachycardia. D dimer in [facility] : very High Venous droppler : no evidence of DVT only superficial obstruction She is on DVT prophylaxis Lovenex 40 mg S/C (2) Venous stasis dermatitis Priority: Secondary Status: Chronic Comments: She has Lymphedema and venous stasis both side Left> right Massive erythematous lesion in both leg There is pain and swelling in left leg especially proximal leg, no ulcer developed. Qualifiers: Laterality: bilateral Qualified Code(s): I87.2 - Venous insufficiency ( chronic) (peripheral) (3) Nonalcoholic hepatosteatosis Priority: Secondary Status: Chronic (4) Thrombocytopenia Priority: Secondary Status: Acute Comments: She has Low Platelets count Latest record 86 Hypersplenism and Lovenox might be a reason (5) Hypersplenism Priority: Secondary Status: Chronic Comments: CT scan of chest shows images of Portal HTN with intra-abdominal varices and splenomegaly She is no alcoholic and she has no evidence of GI bleeding (6) DVT prophylaxis Priority: Secondary Status: Chronic Comments: She is on DVT prophylaxis Lovenox 40 mg SC No evidence of DVT, only superficial vein obstruction (7) Lymphedema Priority: Secondary Status: Chronic Comments: She has Lymphedema in both leg for long time. (8) Cellulitis Priority: Primary Status: Acute Comments: She was here for swelling , redness and pain in left leg Swelling and pain is less than before She is on IV vancomycin 2 gram IV BID for 3 days , will switch to oral Zyvox for a week. Swelling and pain has been less , other symptoms are much better today. TLC 10.5 Qualifiers: Site of cellulitis: extremity Site of cellulitis of extremity: lower extremity Laterality: left Qualified Code(s): L03.116 - Cellulitis of left lower limb Hospital course: Ms. Dejesus is 62 year old female referred from [place] emergency room for whole body ache, fatigue, left leg pain, swelling and redness for a few days . Past medical history is significant for recurrent cellulitis, morbid obesity , multiple antibiotic allergies, Lymphoedea both legs , hypertension. Patient denies fever, but complaining of chills and feeling cold in the morning.She doesn't have any h/o shortness of breath, chest pain, abdominal pain, or vomiting, palpitation, fall, limb weakness. Patient denies recent travel or immobilization. Patient stated that she has had chronic bilateral lymphedema and develops on and off infection . Patient was transferred to [facility] with concern for high d-dimer, leg swelling and pain to rule out PE and DVT. In [place] ED, patient was found tachycardia/ , elevated d-dimer to 18, 000, lactate acid 2.5. Patient was treated with vancomycin IV for cellulitis and IV fluid. . Lower extremities venous droppler : no clot noted, only superficial vein obstruction. CT abdomen shows cirrhosis of liver with abdominal varices and portal hypertension with splenomegaly. During my visit today, she states that it has been 90% improvement since admission ,no fever , no palpitation, no cough and no chest pain, but left leg swelling and pain has been gradually better and feeling fatigue has been better today . She mentioned that she hit her left leg while she was trying to get out of her bed yesterday night , so she has a little bit more pain at left proximal calf, but warmness ,swelling is much less, erythematous rashes is still there . Vitals: 98.3 F, pul 77, BP 173/78, 95% sat , TLC 10.5 , Na140, K 3.8 ,glucose 109, Lactate 0.8 , BUN 20, creatinine 0.59, GFR>60 .We are planning to discharge her as she is improved and hemodynamically stable . She will follow up with her PCP in Out patient unit . - Time Spent with Patient Total time spent providing and/or coordinating discharge services: - Discharge Medications Prescriptions: Linezolid [Zyvox] 600 mg PO BID #14 tablet Home Medications: Diclofenac Sodium [Voltaren] 1 appl TD QID 12/28/17 [History] Furosemide [Lasix] 40 mg PO BID 12/28/17 [History] Lysine [l-Lysine] 500 mg PO DAILY 12/28/17 [History] Magic Mouthwash [Magic Mouthwash BLM] 5 - 10 ml PO Q4H PRN 12/28/17 [History] Megestrol Acetate [Megace] 40 mg PO DAILY 12/28/17 [History] Milk Thistle 500 mg PO DAILY 12/28/17 [History] Misoprostol [Cytotec] 200 mcg PO Q12H 12/28/17 [History] Olmesartan Medoxomil [Benicar] 40 mg PO DAILY 12/28/17 [History] Potassium Chloride [K-Tab ER] 20 meq PO DAILY 12/28/17 [History] Tramadol HCl [Ultram] 50 mg PO BID PRN 12/28/17 [History] Zolpidem [Ambien] 5 mg PO HS 12/28/17 [History] predniSONE [PredniSONE] 10 mg PO AD 12/28/17 [History] Linezolid [Zyvox] 600 mg PO BID #14 tablet 12/30/17 [Rx] Allergies/Adverse Reactions: 3 Allergy/AdvReac Type Severity Reaction Status Date / Time azithromycin [From Zithromax] Allergy See Verified 12/28/17 14:18 Comments cephalexin [From Keflex] Allergy Hives Verified 12/28/17 14:18 ciprofloxacin [From Cipro] Allergy Rash Verified 12/28/17 14:18 doxycycline Allergy Rash Verified 12/28/17 14:18 Erythromycin Base Allergy Rash Verified 12/28/17 14:18 indomethacin [From Indocin] Allergy Rash Verified 12/28/17 14:18 Penicillins [PCN] Allergy Rash Verified 12/28/17 14:18 sulfur dioxide Allergy Rash Verified 12/28/17 14:18 Date of admission: 12/28/17 12:08 Primary care physician: Liza Chambers CNP - Patient Status Disposition: Home, Self-Care Condition: Good Functional capacity at discharge: uses cane/walker Overall status at discharge: patient is progressing back to baseline - Discharge Instructions Instructions: Linezolid (By mouth), Stasis Dermatitis (DC) Follow Up With: Liza Chambers CNP [Primary Care Provider] - 01/03/18 1:00 pm <Jose Mcgowan - Last Filed: 12/30/17 17:58> Orders not resulted at time of discharge: Pending orders 12/30/17 20:11 Lactic Acid Q3HR Date of Encounter: 12/30/17 - Discharge Diagnosis (1) Cellulitis of left lower leg Priority: Primary Status: Resolved (2) Lymphedema Status: Chronic (3) Elevated d-dimer Status: Chronic (4) Thrombocytopenia Status: Acute (5) DVT prophylaxis Status: Chronic (6) Venous stasis dermatitis Status: Chronic Qualifiers: Laterality: bilateral Qualified Code(s): I87.2 - Venous insufficiency ( chronic) (peripheral) (7) Nonalcoholic hepatosteatosis Status: Chronic (8) Hypersplenism Status: Chronic (9) Chronic diastolic heart failure Priority: Secondary Status: Chronic Hospital course: Ms. Dejesus is a 62 year old female - Time Spent with Patient Total time spent providing and/or coordinating discharge services: 39min Date of admission: 12/28/17 12:08 Primary care physician: Liza Chambers CNP - Attending Attestation I examined this patient and my medical decision-making was reviewed with the Resident Physician on 12/30/17. I agree with the documented findings, disposition and treatment plan as described except to the extent set forth below. Ms Dejesus has been in observation for cellulitis and elevated D dimer. Venous dopplers and CTA have been negative. She is up and walking in room and leg has improved. She is afebrile and ready for discharge home. Exam Alert Pleasant Mucus membranes dry Heart distant No wheeze abd soft Lymphedema with improving erythema L Plan D/C home today.
[2017-12-30 16:22] VITALS: BP 133/64
[2017-12-30] MEDS ORDERED: Aminoglycoside Consult 1 EACH MC ONE (17:56)
[2017-12-31] MEDS ORDERED: predniSONE 10 MG TABLET PO SCH (09:00)
== END 2017-12-30 17:57 | disposition home or self-care (01) | DRG 603 ==
LOC: SUATTDRO 12:08 → 2NENU 12:08
PROVIDERS: ADMIT Internal Medicine; ATTEND Internal Medicine